=== PATIENT | female | born 1945 | race Hispanic/Latino ===

== ENCOUNTER 2020-04-08 09:54 | Inpatient (IN) | payer MEDICARE ==
[~2020-04-08] VITALS: Ht 162.6 cm; Wt 49.9 kg
[2020-04-08 10:09] LABS: BASOPHILS % (AUTO) 0.6 % (0.0-5.0); EOSINOPHILS % (AUTO) 0.9 % (0.0-8.0); HEMATOCRIT 41.9 % (36-48); LYMPHOCYTES % (AUTO) 12.9 % (21.0-51.0); MEAN CORPUSCULAR HEMOGLOBIN 29.5 pg (27.0-33.0); MEAN CORPUSCULAR HGB CONC 33.4 g/dL (32.0-36.0); MEAN CORPUSCULAR VOLUME 88.2 fL (79-99); MONOCYTES % (AUTO) 5.5 % (3.0-13.0); NEUTROPHILS % (AUTO) 79.3 % (40.0-77.0); PLATELET COUNT (AUTO) 182 K/uL (130-400); RED BLOOD CELL COUNT(AUTO) 4.75 MIL/uL (4.00-5.50); RED CELL DISTRIBUTION WIDTH 13.7 % (11.0-15.5); WHITE BLOOD COUNT (AUTO) 9.5 K/uL (4.8-10.8)
[2020-04-08 10:22] LABS: INR 0.88 (0.85-1.15); PARTIAL THROMBOPLASTIN TIME 22.8 SEC (26.3-35.5); PROTHROMBIN TIME 9.6 SEC (9.6-11.6)
[2020-04-08 10:24] LABS: ALBUMIN 3.8 g/dL (3.5-5.0); BILIRUBIN,TOTAL 0.5 mg/dL (0.2-1.0); CREATININE 0.9 mg/dL (0.5-1.5); TOTAL PROTEIN, SERUM 7.5 g/dL (6.0-8.3)
[2020-04-08 11:49] LABS: APPEARANCE,URINE Clear (CLEAR); BILIRUBIN,URINE Negative (NEGATIVE); COLOR,URINE Yellow (YELLOW); GLUCOSE, URINE (UA) Negative (NEGATIVE); KETONES,URINE Negative (NEGATIVE); LEUKOCYTE ESTERASE ,URINE Negative (NEGATIVE); NITRATE,URINE Negative (NEGATIVE); OCCULT BLOOD,URINE Negative (NEGATIVE); PROTEIN,URINE Negative (NEGATIVE); UROBILINOGEN,URINE 0.2 mg/dL (0.2-1.0)
[2020-04-08] MEDS ORDERED: KETOROLAC TROMETHAMINE 15MG/ML IV PRN (13:00)
[2020-04-08 13:28] LABS: HEMOGLOBIN A1C 5.6 % (4.0-6.0)
[2020-04-08 13:33] LABS: CHOLESTEROL 203 mg/dL (<200); CREATINE KINASE, TOTAL 21 U/L (21-232); HDL CHOLESTEROL 139 mg/dL (35-85); LDL DIRECT 107 mg/dL (0-99); MYOGLOBIN 65 ng/mL (10-92); TRIGLYCERIDES 41 mg/dL (30-200); TROPONIN I < 0.04 ng/mL (0.00-0.06)
[2020-04-08] MEDS ORDERED: ACETAMINOPHEN 325 MG TAB PO PRN ×2 (15:00)
[2020-04-08] MEDS ORDERED: ONDANSETRON HCL 4 MG/2 ML VIAL IV PRN (15:00)
[2020-04-08] MEDS ORDERED: MAG HYDROX/AL HYDROX/SIMETH ES 30 ML SUSP UDCUP PO PRN (15:00)
[2020-04-08] MEDS ORDERED: ZOLPIDEM TARTRATE 5 MG TAB PO PRN (15:00)
[2020-04-08] MEDS ORDERED: DIPHENHYDRAMINE HCL 25 MG CAPSULE PO PRN (15:00)
[2020-04-08] MEDS ORDERED: GUAIFENESIN-DM 200/20 MG 10 ML PO PRN (15:00)
[2020-04-08] MEDS ORDERED: HYDRALAZINE HCL 20 MG/ML VIAL IV PRN (15:00)
--- NOTE | 2020-04-08 15:52 | NUR ---
CM NOTE/IA UNSUCCESSFUL UNABLE TO MET WITH PATIENT AT BEDSIDE, PATIENTS PHONE NUMBER [phone], CALLED AND NO ANSWER. PATIENT DID NOT PROVIDER PHONE NUMBER FOR NEXT OF KIN. CM TO FOLLOW UP. Addendum: 04/08/20 at 1553 by RAISSA STINSON RN CM Amended: Links added.
[2020-04-08] MEDS ORDERED: HYDRALAZINE HCL 20 MG/ML VIAL ONE (18:37)
[2020-04-08 19:45] VITALS: BP 117/75
[2020-04-08 20:00] LABS: CREATINE KINASE, TOTAL 151 U/L (21-232); MYOGLOBIN 80 ng/mL (10-92); TROPONIN I < 0.04 ng/mL (0.00-0.06)
[2020-04-08] MEDS ORDERED: METOPROLOL TARTRATE 25 MG TAB PO SCH (21:00)
[2020-04-08] MEDS: FAMOTIDINE 20MG TAB 20 MG TAB PO SCH (21:00)
[2020-04-08] MEDS: ATORVASTATIN CALCIUM 20 MG TABLET PO SCH (21:00)
[2020-04-09] VITALS (11 sets, daily range): BP systolic 115–187; BP diastolic 38–101
[2020-04-09] MEDS ORDERED: KETOROLAC TROMETHAMINE 30MG/ML ONE (05:26)
[2020-04-09 05:27] LABS: BASOPHILS % (AUTO) 0.5 % (0.0-5.0); EOSINOPHILS % (AUTO) 1.6 % (0.0-8.0); HEMATOCRIT 41.9 % (36-48); LYMPHOCYTES % (AUTO) 28.1 % (21.0-51.0); MEAN CORPUSCULAR HEMOGLOBIN 29.3 pg (27.0-33.0); MEAN CORPUSCULAR HGB CONC 33.7 g/dL (32.0-36.0); MEAN CORPUSCULAR VOLUME 87.1 fL (79-99); MONOCYTES % (AUTO) 9.1 % (3.0-13.0); NEUTROPHILS % (AUTO) 60.4 % (40.0-77.0); PLATELET COUNT (AUTO) 191 K/uL (130-400); RED BLOOD CELL COUNT(AUTO) 4.81 MIL/uL (4.00-5.50); RED CELL DISTRIBUTION WIDTH 13.6 % (11.0-15.5); WHITE BLOOD COUNT (AUTO) 7.5 K/uL (4.8-10.8)
[2020-04-09 05:43] LABS: ALBUMIN 3.6 g/dL (3.5-5.0); BILIRUBIN,TOTAL 0.7 mg/dL (0.2-1.0); CREATININE 0.9 mg/dL (0.5-1.5); POTASSIUM 4.1 mmol/L (3.5-5.1); TOTAL PROTEIN, SERUM 7.2 g/dL (6.0-8.3)
[2020-04-09] MEDS ORDERED: MORPHINE SULFATE 2 MG/ML 1ML SYG IVP ONE (05:45)
[2020-04-09] MEDS: NITROGLYCERIN 4.1 GM SPRAY TL SCH (08:00)
[2020-04-09] MEDS ORDERED: ASPIRIN 325MG EC TAB 325 MG TABLET.DR PO SCH (08:00)
[2020-04-09] MEDS ORDERED: NITROGLYCERIN 0.4 MG SL TAB SL PRN (08:30)
[2020-04-09] MEDS: LABETALOL 20 MG/4 ML DISP.SYRIN IV PRN (08:33)
[2020-04-09] MEDS: HYDROMORPHONE 1 MG/1 ML AMP IVP PRN (08:35)
[2020-04-09] MEDS: FAMOTIDINE 20MG TAB 20 MG TAB PO SCH ×2 (08:36→21:00)
[2020-04-09] MEDS: METOPROLOL TARTRATE 25 MG TAB PO SCH ×2 (08:36→21:00)
[2020-04-09] MEDS ORDERED: ENOXAPARIN SODIUM 30 MG/0.3 ML SQ SCH (09:00)
[2020-04-09] MEDS ORDERED: ASPIRIN 81MG TAB.CHEW PO SCH (09:00)
--- NOTE | 2020-04-09 09:25 | NUR ---
CHART CHECK COMPLETED. Pt IS A 74 Y.O. FEMALE ADMITTED SECONDARY TO CHEST PAIN R/O ACS, HTN, SCIATICA. Pt WITH NO KNOWN PAST MEDICAL HISTORY. Pt CURRENTLY NOT ON A DIET. PLEASE REQUEST FORMAL SKILLED SPEECH THERAPY ORDER IF Pt PRESENTS WITH +S/S OF ASPIRATION SUCH COUGH RESPONSE, THROAT CLEAR OR WET VOCAL QUALITY AT MEAL TIMES. Addendum: 04/09/20 at [address] Amended: Links added.
--- NOTE | 2020-04-09 10:42 | NUR ---
Notified Dr. Oviedo via telephone of consult by Dr. House for c spine stenosis. He agreed to see pt.
[2020-04-09] MEDS: METHYLPREDNISOLONE SOD SUCC 125MG/2ML VIAL IVP SCH ×2 (12:27→18:31)
[2020-04-09] MEDS ORDERED: IOHEXOL-350 50ML VIAL IV ONE (12:47)
[2020-04-09] MEDS ORDERED: IOHEXOL 350 MG/ML 100ML INFUS..BTL IV ONE (12:47)
--- NOTE | 2020-04-09 14:29 | NUR ---
[facility] CM met with pt and sister in room discussed dc plans. Pt is independent prior to admission, lives at home alone, verbalized aunt lives behind her. Denies any equipments/services. Feels safe to go back home, still drives, sister Elsy able to assist with transportation and needs as necessary. DC plan to home once stable. CM to continue to follow up. Addendum: 04/09/20 at 1432 by NOHELIA RUBIO LVN CM Amended: Links added.
[2020-04-09] MEDS: CYCLOBENZAPRINE HCL 10 MG TABLET PO SCH ×2 (15:07→21:00)
[2020-04-09] MEDS: GABAPENTIN 100 MG CAPSULE PO SCH ×2 (15:09→22:00)
[2020-04-09] MEDS ORDERED: NEOSTIGMINE 5MG/5ML SYR IV ONE (19:09)
[2020-04-09] MEDS ORDERED: LIDOCAINE PF 2% 5ML ABBOJECT ONE ×2 (19:09→22:06)
[2020-04-09] MEDS ORDERED: SUCCINYLCHOLINE CHLORIDE 20 MG/ML 10 ML VIAL ONE (19:09)
[2020-04-09] MEDS ORDERED: MIDAZOLAM HCL 1 MG/ML 2ML VIAL ONE (19:09)
[2020-04-09] MEDS ORDERED: DEXAMETHASONE SOD PHOSPHATE 10MG/ML 1ML VIAL ONE ×2 (19:09→20:19)
[2020-04-09] MEDS ORDERED: PROPOFOL 10 MG/ML 20ML VIAL IV ONE (19:09)
[2020-04-09] MEDS ORDERED: GLYCOPYRROLATE 1 MG/5 ML SYRINGE ONE (19:09)
[2020-04-09] MEDS ORDERED: ONDANSETRON HCL 4 MG/2 ML VIAL ONE ×2 (19:10→22:09)
[2020-04-09] MEDS ORDERED: ROCURONIUM 10MG/1ML SYR 10 MG/ML ML ONE (19:10)
[2020-04-09] MEDS ORDERED: FENTANYL CITRATE PF 50 MCG/1 ML 2ML VIAL ONE ×2 (19:11→21:16)
[2020-04-09] MEDS ORDERED: EPHEDRINE SULFATE 50 MG/ML AMPULE ONE (19:20)
[2020-04-09] MEDS ORDERED: PHENYLEPHRINE HCL 10 MG/ML 1ML VIAL IV ONE (19:34)
--- NOTE | 2020-04-09 19:35 | NUR ---
DR. WHITFIELD NOTICED A DECLINE IN PATIENTS NEUROLOGICAL STATUS, PATIENT UNABLE TO RAISE AND EXTEND UPPER EXTREMITIES, GRASP A PEN. MOVE LOWER EXTREMITIES. PATIENT STATED SHE HAD NO PAIN AT THIS TIME. CALLED DR. WHITFIELD TO ADVISE OF THE CHANGES, STATED PATIENT MUST HAVE A BLEED AND TO SCHEDULE SURGERY NOW. CONTACTED MULTIMEDIA COORDINATOR GIRMA TO ADVISE OF STAT SURGERY BY DR. WHITFIELD, ALSO NOTIFIED CHARGE NURSE PETEY SCHULER.
[2020-04-09] MEDS ORDERED: LIDOCAINE HCL 1% 20 ML VIAL ONE (20:38)
[2020-04-09] MEDS ORDERED: BUPIVACAINE/PF 0.25% 30ML VIAL IJ ONE (20:38)
[2020-04-09] MEDS ORDERED: THROMBIN-JMI 5000 UNIT/VIAL TP ONE ×2 (20:38→20:45)
[2020-04-09] MEDS ORDERED: EPINEPHRINE 1 MG/ML AMPULE ONE (20:39)
[2020-04-09] MEDS ORDERED: CEFAZOLIN SODIUM 1 GM VIAL ONE (20:39)
[2020-04-09] MEDS: ATORVASTATIN CALCIUM 20 MG TABLET PO SCH (21:00)
[2020-04-09] MEDS ORDERED: VANCOMYCIN HCL 1 GM VIAL ONE (21:56)
[2020-04-09] MEDS ORDERED: MEPERIDINE-PF 25 MG/ML SYG ONE (22:09)
[2020-04-10] VITALS (19 sets, daily range): BP systolic 134–167; BP diastolic 57–84
[2020-04-10] MEDS: METHYLPREDNISOLONE SOD SUCC 125MG/2ML VIAL IVP SCH (03:14)
[2020-04-10 03:41] LABS: BASOPHILS % (AUTO) 0.1 % (0.0-5.0); EOSINOPHILS % (AUTO) 0.5 % (0.0-8.0); HEMATOCRIT 38.7 % (36-48); LYMPHOCYTES % (AUTO) 4.5 % (21.0-51.0); MEAN CORPUSCULAR HEMOGLOBIN 29.2 pg (27.0-33.0); MEAN CORPUSCULAR HGB CONC 33.3 g/dL (32.0-36.0); MEAN CORPUSCULAR VOLUME 87.6 fL (79-99); MONOCYTES % (AUTO) 1.6 % (3.0-13.0); NEUTROPHILS % (AUTO) 92.7 % (40.0-77.0); PLATELET COUNT (AUTO) 182 K/uL (130-400); RED BLOOD CELL COUNT(AUTO) 4.42 MIL/uL (4.00-5.50); RED CELL DISTRIBUTION WIDTH 13.8 % (11.0-15.5); WHITE BLOOD COUNT (AUTO) 15.9 K/uL (4.8-10.8)
[2020-04-10 04:02] LABS: ALBUMIN 3.3 g/dL (3.5-5.0); BILIRUBIN,TOTAL 0.4 mg/dL (0.2-1.0); CREATININE 1.1 mg/dL (0.5-1.5); POTASSIUM 4.1 mmol/L (3.5-5.1); TOTAL PROTEIN, SERUM 6.6 g/dL (6.0-8.3)
--- NOTE | 2020-04-10 07:31 | NUR ---
CONSULT NEW CRITICAL CARE CONSULT, DR ALIZA HARKINS NOTIFIED. NO ORDERS RECEIVED, SWIMMING POOL MAINTENANCE WILL SEE ON AM ROUNDS
[2020-04-10] MEDS: GABAPENTIN 100 MG CAPSULE PO SCH ×3 (07:40→22:27)
[2020-04-10] MEDS: NITROGLYCERIN 4.1 GM SPRAY TL SCH (08:00)
[2020-04-10] MEDS: FAMOTIDINE 20MG TAB 20 MG TAB PO SCH ×2 (08:45→20:56)
[2020-04-10] MEDS: METOPROLOL TARTRATE 25 MG TAB PO SCH (08:45)
[2020-04-10] MEDS: CYCLOBENZAPRINE HCL 10 MG TABLET PO SCH ×3 (08:46→20:56)
--- NOTE | 2020-04-10 11:39 | NUR ---
04/09/20 @ 0915 patient signed IM Letter, I faxed IM Letter to [phone] and placed in chart under consent tab.
--- NOTE | 2020-04-10 15:38 | NUR ---
RDSCREEN - LOW BMI FOR AGE Pt admitted with Chest pain. Pt is s/p procedure for cervical decompression. Heart Healthy diet order in place. No report of GI distress. Pt is low BMI for age. Monitored labs: Chol 203, LDL 107, HDL 139, BUN 21, GFR 52, BG 168. Pepcid, Gabapentin in place. History of HTN. Recommend continue current diet order Recommend Ensure TID Recommend Fish Oil supplementation RD to continue to monitor. Please notify as additional nutrition concerns arise. Thank you. Addendum: 04/10/20 at [address] Amended: Links added.
[2020-04-10] MEDS: ATORVASTATIN CALCIUM 20 MG TABLET PO SCH (20:56)
--- NOTE | 2020-04-10 22:52 | NUR ---
patient moved from room 221 to 316. report received from CESAR Saleh. patient alert and oriented times 3. no pain. no issues.
[2020-04-11] MEDS: NITROGLYCERIN 4.1 GM SPRAY TL SCH ×2 (02:25→18:13)
[2020-04-11 04:00] VITALS: BP 160/75
[2020-04-11] MEDS: LABETALOL 20 MG/4 ML DISP.SYRIN IV PRN ×2 (04:17→23:25)
[2020-04-11] MEDS: GABAPENTIN 100 MG CAPSULE PO SCH ×3 (04:17→19:21)
[2020-04-11 05:12] LABS: BASOPHILS % (AUTO) 0.1 % (0.0-5.0); EOSINOPHILS % (AUTO) 1.5 % (0.0-8.0); LYMPHOCYTES % (AUTO) 15.2 % (21.0-51.0); MEAN CORPUSCULAR HEMOGLOBIN 29.5 pg (27.0-33.0); MEAN CORPUSCULAR HGB CONC 33.1 g/dL (32.0-36.0); MEAN CORPUSCULAR VOLUME 89.1 fL (79-99); MONOCYTES % (AUTO) 7.6 % (3.0-13.0); NEUTROPHILS % (AUTO) 75.3 % (40.0-77.0); PLATELET COUNT (AUTO) 163 K/uL (130-400); RED BLOOD CELL COUNT(AUTO) 3.93 MIL/uL (4.00-5.50); RED CELL DISTRIBUTION WIDTH 13.9 % (11.0-15.5); WHITE BLOOD COUNT (AUTO) 14.9 K/uL (4.8-10.8)
[2020-04-11 05:33] LABS: ALBUMIN 3.1 g/dL (3.5-5.0); BILIRUBIN,TOTAL 0.5 mg/dL (0.2-1.0); CREATININE 0.8 mg/dL (0.5-1.5); POTASSIUM 3.7 mmol/L (3.5-5.1); TOTAL PROTEIN, SERUM 6.2 g/dL (6.0-8.3)
[2020-04-11 08:00] VITALS: BP 157/93
[2020-04-11] MEDS: CYCLOBENZAPRINE HCL 10 MG TABLET PO SCH ×3 (09:07→19:19)
[2020-04-11] MEDS: FAMOTIDINE 20MG TAB 20 MG TAB PO SCH ×2 (09:07→19:19)
[2020-04-11 12:00] VITALS: BP 152/79
[2020-04-11 16:00] VITALS: BP 159/76
[2020-04-11] MEDS: ATORVASTATIN CALCIUM 20 MG TABLET PO SCH (19:19)
[2020-04-11 19:42] VITALS: BP 156/85
[2020-04-11] MEDS: HYDROMORPHONE 1 MG/1 ML AMP IVP PRN (23:34)
[2020-04-11 23:47] VITALS: BP 177/88
[2020-04-12 00:40] VITALS: BP 153/77
[2020-04-12 04:00] VITALS: BP 150/73
[2020-04-12] MEDS: GABAPENTIN 100 MG CAPSULE PO SCH (05:22)
[2020-04-12 05:48] LABS: BASOPHILS % (AUTO) 0.3 % (0.0-5.0); EOSINOPHILS % (AUTO) 0.3 % (0.0-8.0); HEMATOCRIT 36.9 % (36-48); LYMPHOCYTES % (AUTO) 14.3 % (21.0-51.0); MEAN CORPUSCULAR HEMOGLOBIN 29.4 pg (27.0-33.0); MEAN CORPUSCULAR HGB CONC 32.8 g/dL (32.0-36.0); MEAN CORPUSCULAR VOLUME 89.8 fL (79-99); MONOCYTES % (AUTO) 9.8 % (3.0-13.0); NEUTROPHILS % (AUTO) 74.9 % (40.0-77.0); PLATELET COUNT (AUTO) 161 K/uL (130-400); RED BLOOD CELL COUNT(AUTO) 4.11 MIL/uL (4.00-5.50); RED CELL DISTRIBUTION WIDTH 13.5 % (11.0-15.5); WHITE BLOOD COUNT (AUTO) 10.7 K/uL (4.8-10.8)
[2020-04-12 06:01] LABS: ALBUMIN 3.2 g/dL (3.5-5.0); BILIRUBIN,TOTAL 0.6 mg/dL (0.2-1.0); CREATININE 0.8 mg/dL (0.5-1.5); POTASSIUM 4.5 mmol/L (3.5-5.1); TOTAL PROTEIN, SERUM 6.5 g/dL (6.0-8.3)
[2020-04-12] MEDS ORDERED: CYCL10TA7 PO (07:32)
[2020-04-12] MEDS ORDERED: LISI10TA7 PO (07:32)
[2020-04-12] MEDS ORDERED: KETO10TA2 PO (07:32)
[2020-04-12] MEDS ORDERED: GABA100C PO (07:32)
[2020-04-12 08:32] VITALS: BP 161/85
[2020-04-12] MEDS ORDERED: LISINOPRIL 10 MG TABLET PO SCH (09:00)
[2020-04-12] MEDS: CYCLOBENZAPRINE HCL 10 MG TABLET PO SCH (10:15)
[2020-04-12] MEDS: FAMOTIDINE 20MG TAB 20 MG TAB PO SCH (10:16)
[2020-04-12 11:09] VITALS: BP 169/79
--- NOTE | 2020-04-12 12:49 | NUR ---
pt and daughter stated understanding of all d/c instructions on after care for a cervical laminectomy, incision line care ( change dressing every 2-3 days and prn, keep it clean dry and intact), physical activity ( no twisting or turning of neck, no driving, no heavy lifting, wear soft collar when out of bed), pain management, new perscriptions sent to [facility]ose and to call for f/u with dr morataya and [facility]. dressing changed to pt's posterior cervical inc. line, she has a well approx. inc. line with gualberto in place, no redness or drainage noted, slight bruising at distal end of inc. line; inc. line cleansed with betadine then dry clean gauze dressing applied; extra gauze and tape sent home with patient for changing dressing at home. iv access and tele box removed.
== END 2020-04-12 13:00 | disposition home or self-care (01) | DRG 471 ==
LOC: EDH 09:54 → OBSVTOIN 12:48 → INTOOBSV 12:48 → EDHIP 12:48 → 3CH 19:37 → 2DH 04-09 23:15 → 3CH 04-10 22:33
PROVIDERS: ADMIT Hospitalist; ATTEND Hospitalist
PROC: 0RG20J1 Fusion of 2 or more Cervical Vertebral Joints with Synthetic Substitute, Posterior Approach, Posterior Column, Open Approach (ICD-10-PCS; principal; 2020-04-09 20:35)
PROC: 00CU0ZZ Extirpation of Matter from Spinal Canal, Open Approach (ICD-10-PCS; 2020-04-09 20:35)
DX: M48.02 Spinal stenosis, cervical region (principal); S14.101A Unspecified injury at C1 level of cervical spinal cord, initial encounter; S14.102A Unspecified injury at C2 level of cervical spinal cord, initial encounter; S14.103A Unspecified injury at C3 level of cervical spinal cord, initial encounter; I16.1 Hypertensive emergency; J98.11 Atelectasis; G95.20 Unspecified cord compression; I10 Essential (primary) hypertension; D72.828 Other elevated white blood cell count; I34.0 Nonrheumatic mitral (valve) insufficiency; K76.89 Other specified diseases of liver; M47.22 Other spondylosis with radiculopathy, cervical region; Z98.51 Tubal ligation status
CPT/HCPCS: 36415; 70450; 70496; 70498; 71045; 71275; 72040; 72141; 72146; 80053; 80061; 81003; 82550; 83036; 83874; 84484; 85025; 85610; 85730; 93005; 93306; 93356; 97039; A4344; A4606; C1713; G0378; J0171; J0330; J0360; J0690; J1100; J1170; J1650; J1885; J2001; J2175; J2250; J2370; J2405; J2704; J2710; J2930; J3010; J3370; J3490; J7120; Q9967

== ENCOUNTER 2022-10-25 10:23 | Emergency (ER) | payer MEDICARE ==
[~2022-10-25] VITALS: Ht 160 cm; Wt 50.8 kg
[~2022-10-25 10:23] MED LIST: CYCL-309 PO; GABA100C PO; KETO10TA2 PO; LISI10TA24 PO
[2022-10-25 10:27] VITALS: BP 122/57
[2022-10-25 10:50] LABS: BASOPHILS % (AUTO) 0.5 % (0.0-5.0); EOSINOPHILS % (AUTO) 0.7 % (0.0-8.0); HEMATOCRIT 40.3 % (36-48); LYMPHOCYTES % (AUTO) 23.7 % (21.0-51.0); MEAN CORPUSCULAR HEMOGLOBIN 29.1 pg (27.0-33.0); MEAN CORPUSCULAR HGB CONC 33.3 g/dL (32.0-36.0); MEAN CORPUSCULAR VOLUME 87.6 fL (79-99); MONOCYTES % (AUTO) 7.9 % (3.0-13.0); NEUTROPHILS % (AUTO) 66.3 % (40.0-77.0); PLATELET COUNT (AUTO) 257 K/uL (130-400); RED CELL DISTRIBUTION WIDTH 12.8 % (11.0-15.5)
[2022-10-25 10:52] LABS: APPEARANCE,URINE CLEAR (CLEAR); BILIRUBIN,URINE NEGATIVE (NEGATIVE); COLOR,URINE LIGHT-YELLOW (YELLOW); GLUCOSE, URINE (UA) NEGATIVE (NEGATIVE); KETONES,URINE NEGATIVE (NEGATIVE); LEUKOCYTE ESTERASE ,URINE NEGATIVE Leu/uL (NEGATIVE); NITRATE,URINE NEGATIVE (NEGATIVE); OCCULT BLOOD,URINE NEGATIVE (NEGATIVE); PH,URINE 5.5 (5.0-8.0); PROTEIN,URINE NEGATIVE (NEGATIVE); UROBILINOGEN,URINE 0.2 mg/dL (0.2-1.0)
[2022-10-25 11:02] LABS: CREATININE 1.2 mg/dL (0.5-1.5); POTASSIUM 4.1 mmol/L (3.5-5.1)
[2022-10-25 11:07] LABS: ALBUMIN 4.1 g/dL (3.5-5.0); TOTAL PROTEIN, SERUM 7.8 g/dL (6.0-8.3)
[2022-10-25] MEDS ORDERED: IOHEXOL 350 MG/ML 100ML INFUS..BTL IV ONE (11:42)
[2022-10-25] MEDS ORDERED: LIDO1ADH82 TP (14:17)
[2022-10-25] MEDS ORDERED: ACET-66 PO (14:17)
[2022-10-25] MEDS ORDERED: ACETAMINOPHEN 500 MG TABLET PO ONE (14:30)
[2022-10-25] MEDS ORDERED: LIDOCAINE 5% TOPICAL PATCH TP ONE (14:30)
== END 2022-10-25 14:45 | disposition home or self-care (01) ==
LOC: EDH 10:23
DX: M25.551 Pain in right hip (principal); I10 Essential (primary) hypertension; Z79.899 Other long term (current) drug therapy
CPT/HCPCS: 99285; 74177; 80053; 85025; 83605; 81003; 36415; Q9967